=== PATIENT | female | born 1955 | race Caucasian/White ===

== ENCOUNTER 2021-01-20 09:41 | Day surgery (SDC) | payer MEDICARE, SELFPAY ==
--- NOTE | 2021-01-19 13:05 | P.CONAN_ITS ---
Documented by User: Fatemeh Guevara NP 01/19/21 13:06 HPI - Anesthesia Eval Consult details Narrative: 65yo F for Upper Endoscopy [facility] Past Medical History Medical History (Updated 01/20/21 @ 10:11 by Mariola Pruett MD) Bilateral cataracts GERD (gastroesophageal reflux disease) Hx of breast cancer Hx of fracture of hip Osteoporosis Surgical History Surgical History (Updated 01/19/21 @ 11:08 by Pau Ivey RN) History of laminectomy Hx of elbow surgery Hx of lumpectomy Social History Social History Patient Tobacco Use Status: Never used Tobacco Use of substances other than those prescribed or required for medical reasons: No Are you DNR?: No Advance Directives: No Advance Directives Information Provided: Yes Meds Allergies Allergy/AdvReac Type Severity Reaction Status Date / Time grass pollen Allergy Unknown Verified 01/19/21 11:06 mold Allergy Unknown Verified 01/19/21 11:06 Home Medications Medication Instructions Recorded Confirmed Last Taken Type Calcium And Magnesium 01/19/21 Unknown History Osteo Bi-Flex 01/19/21 Unknown History biotin 5 mg capsule 5 mg PO DAILY 01/19/21 01/19/21 Unknown History cholecalciferol (vitamin D3) 25 25 mcg PO DAILY 01/19/21 01/19/21 Unknown History mcg (1,000 unit) capsule (Vitamin D3) lansoprazole 30 mg capsule,delayed 1 cap PO DAILY 01/19/21 01/19/21 Unknown History release multivitamin 1 tab PO DAILY 01/19/21 01/19/21 Unknown History omega 9-gmd-oxq-fish oil 1,200 mg cap PO 01/19/21 Unknown History (144 mg-216 mg) capsule (Fish Oil) tramadol 50 mg tablet (Ultram) 50 mg PO DAILY PRN 01/19/21 01/19/21 Unknown History turmeric 400 mg capsule mg PO 01/19/21 Unknown History vit C,E,zinc,copper-gzota7f 250 cap PO 01/19/21 Unknown History mg-lutein 5 mg-zeaxanthin 1 mg capsule (Ocuvite Adult 50 Plus) zinc 100 mg tablet 100 mg PO 01/19/21 Unknown History Exam Exam Date and Time: January 19, 2021 1305 Assessment and Plan Assessment Anesthesia Assessment: Chart Reviewed Documented by User: Mariola Pruett MD 01/20/21 10:13 [facility] Past Medical History Medical History (Updated 01/20/21 @ 10:11 by Mariola Pruett MD) Bilateral cataracts GERD (gastroesophageal reflux disease) Hx of breast cancer Hx of fracture of hip Osteoporosis Family History Family history of problems with anesthesia: No Surgical History Surgical History (Updated 01/19/21 @ 11:08 by Pau Ivey RN) History of laminectomy Hx of elbow surgery Hx of lumpectomy History of Problems with Anesthesia: No Social History Social History Patient Tobacco Use Status: Never used Tobacco Use of substances other than those prescribed or required for medical reasons: No Are you DNR?: No Advance Directives: No Advance Directives Information Provided: Yes Meds Allergies Allergy/AdvReac Type Severity Reaction Status Date / Time grass pollen Allergy Unknown Verified 01/19/21 11:06 mold Allergy Unknown Verified 01/19/21 11:06 Home Medications Medication Instructions Recorded Confirmed Last Taken Type Calcium And Magnesium 01/19/21 Unknown History Osteo Bi-Flex 01/19/21 Unknown History biotin 5 mg capsule 5 mg PO DAILY 01/19/21 01/19/21 Unknown History cholecalciferol (vitamin D3) 25 25 mcg PO DAILY 01/19/21 01/19/21 Unknown History mcg (1,000 unit) capsule (Vitamin D3) lansoprazole 30 mg capsule,delayed 1 cap PO DAILY 01/19/21 01/19/21 Unknown History release multivitamin 1 tab PO DAILY 01/19/21 01/19/21 Unknown History omega 9-lou-ijs-fish oil 1,200 mg cap PO 01/19/21 Unknown History (144 mg-216 mg) capsule (Fish Oil) tramadol 50 mg tablet (Ultram) 50 mg PO DAILY PRN 01/19/21 01/19/21 Unknown History turmeric 400 mg capsule mg PO 01/19/21 Unknown History vit C,E,zinc,copper-jwwku8q 250 cap PO 01/19/21 Unknown History mg-lutein 5 mg-zeaxanthin 1 mg capsule (Ocuvite Adult 50 Plus) zinc 100 mg tablet 100 mg PO 01/19/21 Unknown History Exam Height,Weight and Vital Signs: Height 5 ft 3 in Weight 65.317 kg Vital Signs Temp Pulse Resp BP Pulse Ox 01/20/21 09:55 98.1 F 71 16 132/81 98 Airway Mallampati Class: II TM Dist: >3cm Neck ROM: Full Loose/Missing/Broken Teeth: No Heart: RRR Lungs: CTAB Assessment and Plan Assessment Anesthesia Assessment: Anesthesia Plan Discussed Final Anesthetic Review Family History of Problems with Anesthesia: No History of Problems with Anesthesia: No NPO: Yes ASA Class: II Final Preanesthetic Review: No Changes in Pt Med Stat, Meds/Allgs Chart Reviewed, Consent Obtained/Reviewed and Anes Risks/Benef Reviewed Patient Risk: Low Procedure Risk: Low Assessment/Block/Sedation in SS: Assess/Block/Sedation-SS Anesthetic Plan Anesthetic Plan: MAC: Disposition: Standard PACU
[2021-01-20 09:55] VITALS: BP 132/81; PULSE 71; RESP 16; TEMP 36.7; O2SAT 98; BMI 25.4
[2021-01-20] MEDS: Lactated Ringers 1,000 ML 100 ML IVCONT (10:05)
--- NOTE | 2021-01-20 11:58 | MHC.SHP ---
Pre-Procedural Eval Section A Date of Service: 01/20/21 The patient is an INPATIENT: No Changes since office visit: No Cold of Flu in the past 2 weeks, No New Medical Problems, No Changes in Medication and No Patient answered all questions The History & Physical has been completed within 30 days and I have reviewed it.: Yes Section B Chief Complaint: reflux disease Allergies: Allergies Allergy/AdvReac Type Severity Reaction Status Date / Time grass pollen Allergy Unknown Verified 01/19/21 11:06 mold Allergy Unknown Verified 01/19/21 11:06 Plan I have reviewed the history and physical and performed a pertinent physical examination on my patient. No changes have occurred unless specified.
--- NOTE | 2021-01-20 12:27 | PM.OP ---
Brief Operative Note Date of Service: 01/20/21 Pre-op diagnosis: gerd Post-op diagnosis: same Procedure: egd Surgeon: Jorge Rojas Anesthesia: MAC Was an Counter Intelligence used for this Procedure?: No Estimated blood loss (mL): 2 Pathology: other (bx antrum,egj,duodenum) Condition: stable Disposition: PACU
[2021-01-20 12:35] VITALS: BP 105/51; PULSE 87; RESP 16; TEMP 36.2; O2SAT 95
--- NOTE | 2021-01-20 12:45 | OP_ITS ---
SURGEON: Jorge Rojas MD INDICATIONS: Gastroesophageal reflux disease. PREOPERATIVE DIAGNOSIS: POSTOPERATIVE DIAGNOSIS: PROCEDURE PERFORMED: Upper endoscopy with biopsy. ESTIMATED BLOOD LOSS: COMPLICATIONS: ANESTHESIA: ASSISTANTS: SPECIMENS: MEDICATIONS: Monitored anesthesia care. DESCRIPTION OF PROCEDURE: History and physical performed. The risks and benefits of the procedure were explained to the patient. Informed consent was obtained. The patient was placed in the left lateral decubitus position. The Olympus video gastroscope was introduced into the esophagus, stomach, and duodenum. Examination was performed and the scope was removed. She tolerated the procedure well and was taken to recovery area in stable condition. FINDINGS: Esophagus: The esophagus was normal. There was a small hiatal hernia measuring approximately 2 cm. The EG junction showed no esophagitis. Biopsies were obtained from the EG junction. Stomach: The stomach showed no evidence of masses, ulcers, or polyps. Antral biopsies were obtained to rule out H pylori. Duodenum: The bulb and second portion were normal. Duodenal biopsies were obtained to evaluate for any evidence of celiac disease. IMPRESSION: Gastroesophageal reflux disease. RECOMMENDATION: Follow up the biopsy results. MD EDILIA Burleson/[place] / [id number]
[2021-01-20 12:54] VITALS: BP 113/65; PULSE 67; RESP 16; TEMP 36.2; O2SAT 97
== END 2021-01-20 13:35 | disposition home or self-care (01) ==
PROVIDERS: Visit Provider Internal Medicine Gastroenterology
PROC: 0DJ08ZZ Inspection of Upper Intestinal Tract, Via Natural or Artificial Opening Endoscopic (ICD-10-PCS; CPT 43235; principal; 2021-01-20 10:50)
DX: K21.9 Gastro-esophageal reflux disease without esophagitis (principal); K44.9 Diaphragmatic hernia without obstruction or gangrene; M81.0 Age-related osteoporosis without current pathological fracture; Z85.3 Personal history of malignant neoplasm of breast; Z79.899 Other long term (current) drug therapy
CPT/HCPCS: 43239; 88305; 88342; J3010

== ENCOUNTER 2024-01-20 13:00 | Outpatient (REF) | payer MEDICARE, SELFPAY | END 2024-01-20 13:01 | disposition home or self-care (01) | LOC: HO.CT 13:00 | PROVIDERS: PCP Family Medicine; Visit Provider Otolaryngology | DX: J33.0 Polyp of nasal cavity (principal); J34.2 Deviated nasal septum | CPT/HCPCS: 70486 ==